=== PATIENT | male | born 1955 | race Hispanic/Latino ===

== ENCOUNTER 2022-06-02 08:05 | Day surgery (SDC) | payer MEDICARE ==
[~2022-06-02] VITALS: Ht 172.7 cm; Wt 81.2 kg
[~2022-06-02 08:05] MED LIST: ASPIRIN 81 LOW81 MG PO; EUTHYROX50 MCG; KAPSPARGO SPRIN25 MG; LOSARTAN POTASS50 MG PO; METOPROL TAR25 M1 PO; ROSUVASTATIN CA40 MG
[2022-06-02 11:14] VITALS: BP 117/60
== END 2022-06-02 11:00 | disposition home or self-care (01) ==
LOC: ENDO 08:05
PROVIDERS: ATTEND Surgery
PROC: 0DBL8ZX Excision of Transverse Colon, Via Natural or Artificial Opening Endoscopic, Diagnostic (ICD-10-PCS; principal; 2022-06-02)
DX: Z12.11 Encounter for screening for malignant neoplasm of colon (principal); D12.3 Benign neoplasm of transverse colon; K57.30 Diverticulosis of large intestine without perforation or abscess without bleeding; K64.8 Other hemorrhoids; I10 Essential (primary) hypertension; E03.9 Hypothyroidism, unspecified; F17.210 Nicotine dependence, cigarettes, uncomplicated